=== PATIENT | female | born 1980 | race Caucasian/White ===

== ENCOUNTER 2023-07-25 00:07 | Inpatient (IN) | payer MEDICAID, OTHER ==
[~2023-07-25] VITALS: Ht 175.3 cm; Wt 75.7 kg
[2023-07-25 02:21] LABS: BASOPHILS % (AUTO) 0.7 % (0.0-2.0); EOSINOPHILS % (AUTO) 1.4 % (1.0-6.0); HEMOGLOBIN 14.3 g/dL (12.0-16.0); LYMPHOCYTES # (AUTO) 3.4 K/uL (1.0-4.8); LYMPHOCYTES % (AUTO) 30.4 % (22.0-44.0); MEAN CORPUSCULAR HEMOGLOBIN 24.5 pg (26.0-34.0); MEAN CORPUSCULAR HGB CONC 31.8 G/dL (31.0-37.0); MEAN CORPUSCULAR VOLUME 77 fL (80-100); MONOCYTES # (AUTO) 0.4 K/uL (0.1-1.0); MONOCYTES % (AUTO) 3.9 % (2.0-9.0); NEUTROPHILS # (AUTO) 7.1 K/uL (1.8-7.7); NEUTROPHILS % (AUTO) 63.6 % (40.0-70.0); PLATELET COUNT (AUTO) 376 K/uL (150-450); RED BLOOD CELL COUNT(AUTO) 5.85 MIL/uL (4.00-5.20); RED CELL DISTRIBUTION WIDTH 17.9 % (11.5-14.5); WHITE BLOOD COUNT (AUTO) 11.2 K/uL (4.5-11.0)
[2023-07-25 02:30] LABS: ANION GAP 8 mmol/L (8-16); CALCIUM, TOTAL 8.9 mg/dL (8.8-10.5); CARBON DIOXIDE 30 mmol/L (22-29); CHLORIDE 107 mmol/L (98-107); GLOMERULAR FILTR. RATE CALC > 60 mL/min (>60); GLUCOSE,RANDOM 100 mg/dL (70-110); POTASSIUM 3.9 mmol/L (3.5-5.1); SODIUM SERUM 145 mmol/L (136-145); UREA NITROGEN, BLOOD 8 mg/dL (7-18)
[2023-07-25 02:35] LABS: ALANINE AMINOTRANSFERASE 29 U/L (12-78); ALBUMIN 4.1 g/dL (3.4-5.0); ALKALINE PHOSPHATASE 84 U/L (46-116); ASPARTATE AMINOTRANSFERASE 15 U/L (15-37); BILIRUBIN,TOTAL 0.2 mg/dL (0.1-1.0)
[2023-07-25 02:37] LABS: ALCOHOL, BLOOD (SERUM) 173 mg/dL (0-10)
[2023-07-25 03:06] LABS: COVID AG,FIA SOURCE NASAL SWAB
[2023-07-25 03:18] LABS: SARS-COV2 (COVID) ANTIGEN,FIA Negative (Negative)
[2023-07-25] MEDS ORDERED: BUSP15TA3 PO (03:23)
[2023-07-25] MEDS ORDERED: CITA-108 PO (03:23)
[2023-07-25] MEDS ORDERED: ACETAMINOPHEN 325 MG TABLET PO PRN (05:00)
[2023-07-25] MEDS ORDERED: LIDOCAINE 5% TRANSDERMAL PATCH TD ONE (08:30)
[2023-07-25] MEDS ORDERED: LORazepam 2 MG TABLET PO PRN (10:00)
[2023-07-25] MEDS ORDERED: HALOPERIDOL 5 MG TABLET PO PRN (10:00)
[2023-07-25] MEDS ORDERED: ZOLPIDEM TARTRATE 10 MG TABLET PO PRN (10:00)
[2023-07-25 14:41] VITALS: BP 128/91; PULSE 100; RESP 18; TEMP 97.7
[2023-07-25] MEDS ORDERED: INFLUENZA VIRUS VACCINE QVS 2023-24 (6MO+)/PF 60 MCG/0.5 ML SYRINGE IM. ONE (16:15)
[2023-07-25] MEDS ORDERED: PNEUMOCOCCAL VACCINE POLYVALENT 0.5 ML SYRINGE [PPSV23] IM. ONE (16:15)
[2023-07-25 20:58] VITALS: RESP 18
[2023-07-25 21:03] VITALS: RESP 18
[2023-07-26] MEDS ORDERED: BENZOCAINE/MENTHOL LOZENGE PO PRN (07:00)
[2023-07-26] MEDS ORDERED: ALBUTEROL SULFATE HFA 90 MCG/PUFF 8 GM INHALER IH PRN (07:00)
[2023-07-26] MEDS ORDERED: ACETAMINOPHEN 325 MG TABLET PO PRN (07:00)
[2023-07-26] MEDS ORDERED: MAG HYDROX/ALUMINUM HYD/SIMETH ES 30 ML SUSPENSION UDCUP PO PRN (07:00)
[2023-07-26] MEDS ORDERED: ONDANSETRON HCL 4 MG TABLET PO PRN (07:00)
[2023-07-26] MEDS ORDERED: OMEPRAZOLE 20 MG CAPSULE PO PRN (07:00)
[2023-07-26] MEDS ORDERED: CloNIDine HCL 0.1 MG TABLET PO PRN (07:00)
[2023-07-26] MEDS ORDERED: LOPERAMIDE HCL 2 MG CAPSULE PO PRN (07:00)
[2023-07-26] MEDS ORDERED: PETROLATUM,WHITE 28 GM JELLY TP PRN (07:00)
[2023-07-26] MEDS ORDERED: MAGNESIUM HYDROXIDE SUSPENSION 30 ML UDCUP PO PRN (07:00)
[2023-07-26] MEDS ORDERED: IBUPROFEN 600 MG TABLET PO PRN (07:00)
[2023-07-26] MEDS ORDERED: BACITRACIN 28 GM OINTMENT TP PRN (07:00)
[2023-07-26] MEDS ORDERED: DOCUSATE SODIUM 100 MG CAPSULE PO PRN (07:00)
[2023-07-26 08:20] VITALS: BP 139/95; PULSE 100; RESP 18; O2SAT 99
[2023-07-26 08:47] VITALS: BP 139/95; PULSE 100; RESP 18; TEMP 97.6
[2023-07-26 09:53] VITALS: BP 130/90; PULSE 90; RESP 18; TEMP 97.2; O2SAT 100
== END 2023-07-26 14:15 | disposition home or self-care (01) | DRG 754 ==
LOC: EMS 00:09 → 3EC 13:10
PROVIDERS: ADMIT Psychiatry & Neurology Psychiatry; ATTEND Psychiatry & Neurology Psychiatry
DX: F32.9 Major depressive disorder, single episode, unspecified (principal); R45.851 Suicidal ideations; F41.9 Anxiety disorder, unspecified; G47.00 Insomnia, unspecified; K21.9 Gastro-esophageal reflux disease without esophagitis; F17.210 Nicotine dependence, cigarettes, uncomplicated; F19.10 Other psychoactive substance abuse, uncomplicated; Z20.822 Contact with and (suspected) exposure to COVID-19
CPT/HCPCS: 80053; 84703; 85025; 99285; G0480